=== PATIENT | male | born 1945 | race Caucasian/White ===

== ENCOUNTER 2016-11-07 21:52 | Emergency (ER) | payer OTHER ==
--- NOTE | 2016-11-07 22:32 | ED ORDER SUMMARY ---
..... Patient: GRACY PARNELL OrderSheet [facility] VisitID: [id number] [address] [place] [address] 71y, M Registration Date/Time: 11/07/2016 ORDER SHEET Weight: 79.8 kg (stated) Allergies: None GENERAL ORDERS: POC Glucose (22:19 11/07/2016 Isabell JuanABernadette-C) (22:25 Srikanth ER Financial Aid Manager) MEDICATION ORDERS: Tylenol w Codeine PO 10 mL (HIGH ALERT MEDICATION, NOW) (22:28 11/07/2016 Isabell Choudhury.A.-C) (23:01 Zaid Weinberg) IV FLUIDS: ORDER SHEET NOTES: [Electronically signed by Deangelo Batres R.N. (23:06 11/07/2016)] [Electronically signed by Isa Osborne P.A.-C (23:18 11/07/2016)] [Electronically locked/signed by Deangelo Batres R.N. (23:06 11/07/2016)]
--- NOTE | 2016-11-07 22:32 | ED ORDER SUMMARY ---
..... Patient: GRACY PARNELL OrderSheet [facility] VisitID: [id number] [address] [place] [address] 71y, M Registration Date/Time: 11/07/2016 ORDER SHEET Weight: 79.8 kg (stated) Allergies: None GENERAL ORDERS: POC Glucose (22:19 11/07/2016 Isabell JuanABernadette-C) (22:25 Srikanth ER Perfect Binder Setter) MEDICATION ORDERS: Tylenol w Codeine PO 10 mL (HIGH ALERT MEDICATION, NOW) (22:28 11/07/2016 Isabell Choudhury.A.-C) (23:01 Zaid Weinberg) IV FLUIDS: ORDER SHEET NOTES: [Electronically signed by Deangelo Batres R.N. (23:06 11/07/2016)] [Electronically signed by Isa Osborne P.A.-C (23:18 11/07/2016)] [Electronically locked/signed by Deangelo Batres R.N. (23:06 11/07/2016)]
--- NOTE | 2016-11-07 22:32 | ED CLINICAL REPORT ---
Clinical Report - Physicians/Mid Levels [facility] [address] [place] [address] 11/07/2016 21:53 Patient: GRACY PARNELL Time Seen: 22:41 Nov 07 2016. Arrived- By private vehicle. Historian- patient and family. HISTORY OF PRESENT ILLNESS Chief Complaint: SORE THROAT. 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 Pain described as mild. The patient has had a sore throat. (patient with a sore throat over the last 3 days, with rhinorrhea, congestion and right otalgia. Seen in the clinic today, started on antibiotics, despite negative rapid strep, started on azithromycin, no relief and thus are here. No new symptoms. No cough. No sudden changes to shortness of breath or new otalgia that has developed. No recent trauma. No hemoptysis. No weakness. No abdominal pain, nausea or vomiting. No chest pain. Is able to swallow, however with pain. No sick contacts.). REVIEW OF SYSTEMS No fever, difficulty breathing, chest pain, nausea or diarrhea. No abdominal pain or headache. All systems otherwise negative, except as recorded above. PAST HISTORY Problems: Hypertension. Pharyngitis. Hypercholesterolemia. Diabetes Mellitus. Immunizations. Additional Surgeries: Prostatectomy. Medications: Lantus Subcutaneous. Glipizide Oral. Simvastatin Oral. Aspirin Low Dose Oral. Allergies: None. SOCIAL HISTORY No drug use. ADDITIONAL NOTES The nursing notes have been reviewed. PHYSICAL EXAM Vital Signs: 11/07/2016 22:03 BP: 145/77. HR: 85. RR: 18. O2 saturation: 96%. Temp: 99.5 F. Appearance: Alert. No acute distress. ENT: Ears normal. Nose normal. Pharyngeal erythema. Pharynx normal. No trismus present. Uvula midline. No tonsillar exudate, peritonsillar mass, muffled or hoarse voice, drooling or nasal discharge. No purulent nasal discharge. (scarring of right tm, with no erythema, no signs of canal swelling or perforation). Neck: Lymphadenopathy present. CVS: Normal heart rate and rhythm. Respiratory: No respiratory distress. Breath sounds normal. No stridor or decreased air movement. Skin: Normal skin color. Extremities: Extremities nontender. PROGRESS AND PROCEDURES Course of Care: Family here translating on patient behalf, he is comfortable with such. Positive lymphadenopathy, low-grade fever, negative rapid strep recently, started on azithromycin. Patient is diabetic which appears to be in good control, at this time etiology is viral or bacterial, given his age group viral is highly suspicious, will give pain relief with Tylenol and codeine, which patient appreciated in the ER, and to follow up outpatient otherwise, salt water gargles recommended as well. No tachycardia, uvula is midline and no shift. No large masses of the neck are noted, in no acute further work up is essential. Glucose: 183. 11/07/2016 23:05 BP: 137/80. HR: 88. RR: 16. O2 saturation: 97%. Temp: 99 F. Patient is stable. Patient/family counseled. Differential Diagnosis: I considered viral pharyngitis, bacterial pharyngitis, palatine tonsillitis, lingual tonsillitis, thrush, allergic stomatitis, erythema multiforme, mononucleosis, peritonsillar cellulitis, parapharyngeal abscess, sinusitis, otitis media, foreign body, cardiac etiology, uvular edema and laryngeal edema as a possible cause of sore throat in this patient. This is a partial list of diagnoses considered. Disposition: Discharged. Condition: good. CLINICAL IMPRESSION Acute pharyngitis Chronic, well controlled type 2 diabetes. INSTRUCTIONS Rest. Drink plenty of fluids. (take your medications as prescribed). Warnings: SEDATIVE MEDICATION: You were given sedative medication during your visit. Do not drive or operate dangerous machinery. Prescription Medications: Tylenol with Codeine Liquid, 12 mg / 120 mg / 5 mL: take 1-2 teaspoons every 6 hours as needed for pain. Dispense ninety (90) mL. No refill. Substitution is permissible. OTC Medications: Take OTC medications according to label instructions. Available over the counter. Acetaminophen (available over the counter): take according to label instructions. Follow-up: Follow up with your doctor in three days. Understanding of the discharge instructions verbalized by patient. (Electronically signed by Isa Osborne P.A.-C 11/07/2016 23:18)
--- NOTE | 2016-11-07 22:32 | ED NURSING NOTES ---
Clinical Report - Nurses [facility] [address] [place] [address] 11/07/2016 21:53 Patient: GRACY PARNELL TRIAGE Triage time 2200. Acuity: LEVEL 3. Chief Complaint: SORE THROAT. --22:10 Deangelo Batres R.N. 22:03 11/07/16. BP: 145/77. HR: 85. RR: 18. O2 saturation: 96%. Temp: 99.5 F. Pain level now 03/24. --22:10 Deangelo Batres R.N. Weight: 79.8 kg stated. Height/Length: 63 inches Per Patient. BMI: 31.2. --22:09 Deangelo Batres R.N. Medications Aspirin Low Dose Oral. --22:06 Deangelo Batres R.N. Simvastatin Oral. --22:06 Deangelo Batres R.N. Glipizide Oral. --22:06 Deangelo Batres R.N. Lantus Subcutaneous. --22:06 Deangelo Batres R.N. Allergies None. --22:06 Deangelo Batres R.N. History Arrived by private vehicle. Historian: patient and family. Accompanied by family. Onset. (3 days). He has had moderate right ear pain. 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 FALL RISK ASSESSMENT: Fall risk assessment completed. No fall risk identified. NUTRITIONAL RISK ASSESSMENT: The nutritional risk assessment revealed no deficiencies. FUNCTIONAL ASSESSMENT: Functional assessment: no impairments noted. LEARNING NEEDS ASSESSMENT: The learning needs assessment revealed no barriers. SKIN INTEGRITY ASSESSMENT: Skin integrity risk assessment completed. No skin integrity risk identified. --22:10 Deangelo Batres R.N. PROBLEMS: Hypertension. Pharyngitis. Hypercholesterolemia. Diabetes Mellitus. Immunizations. --22:07 Deangelo Batres R.N. ADDITIONAL SURGERIES: Prostatectomy. --22:07 Gisel, Deangelo, R.N. Interventions ID band on patient. --22:10 Deangelo Batres R.N. PHYSICAL ASSESSMENT Ambulatory to room. GENERAL / NEURO / PSYCH: Alert. Oriented X 4. Appears in no acute distress. HEENT: Pupils equal, round and reactive to light. Voice within normal limits. Mucous membranes are pink. RESPIRATORY: Respirations not labored. CVS: Capillary refill less than 2 seconds. SKIN: Skin is warm and dry. Normal skin turgor. --22:10 Deangelo Batres R.N. NURSING PROGRESS NOTES Patient gowned. Head of bed elevated. Reassurance given. Patient identifiers checked. Call light placed in reach. Bed placed in lowest position. Brakes of bed on. --22:10 Deangelo Batres R.N. Point of care testing: performed by [facility]. Glucose: 183. Result shown to the ED physician. --22:25 Fish Vergara, ER Uniform Room Attendant 22:51 11/07/2016 TYLENOL W CODEINE (Acetaminophen-Codeine) PO 10 mL given. Allergies verified and confirmed 5 rights. --23:01 Deangelo Batres R.N. DISPOSITION / DISCHARGE Departure time: 2304. Condition at departure: improved. No learning barriers present. Discharge instructions provided and reviewed with the patient, spouse and family. Reviewed warnings. Reviewed medication(s). Treatments reviewed. Patient, spouse and family verbalized understanding. Written instructions provided in Nepali. The patient was discharged by the physician salon assistant. He was discharged home and accompanied by spouse and family. He left the Emergency Department ambulatory and via private vehicle. Family member driving. FALL RISK ASSESSMENT: Fall risk assessment completed. No fall risk identified. --23:06 Deangelo Batres R.N. 23:05 11/07/16. BP: 137/80. HR: 88. RR: 16. O2 saturation: 97%. Temp: 99 F. Pain level now 12/22. --23:06 Deangelo Batres R.N. Locked/Released at 11/07/2016 23:06 by Deangelo Batres R.N.
--- NOTE | 2016-11-07 22:32 | ED NURSING NOTES ---
Clinical Report - Nurses [facility] [address] [place] [address] 11/07/2016 21:53 Patient: GRACY PARNELL TRIAGE Triage time 2200. Acuity: LEVEL 3. Chief Complaint: SORE THROAT. --22:10 Deangelo Batres R.N. 22:03 11/07/16. BP: 145/77. HR: 85. RR: 18. O2 saturation: 96%. Temp: 99.5 F. Pain level now 03/24. --22:10 Deangelo Batres R.N. Weight: 79.8 kg stated. Height/Length: 63 inches Per Patient. BMI: 31.2. --22:09 Deangelo Batres R.N. Medications Aspirin Low Dose Oral. --22:06 Deangelo Batres R.N. Simvastatin Oral. --22:06 Deangelo Batres R.N. Glipizide Oral. --22:06 Deangelo Batres R.N. Lantus Subcutaneous. --22:06 Deangelo Batres R.N. Allergies None. --22:06 Deangelo Batres R.N. History Arrived by private vehicle. Historian: patient and family. Accompanied by family. Onset. (3 days). He has had moderate right ear pain. 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 FALL RISK ASSESSMENT: Fall risk assessment completed. No fall risk identified. NUTRITIONAL RISK ASSESSMENT: The nutritional risk assessment revealed no deficiencies. FUNCTIONAL ASSESSMENT: Functional assessment: no impairments noted. LEARNING NEEDS ASSESSMENT: The learning needs assessment revealed no barriers. SKIN INTEGRITY ASSESSMENT: Skin integrity risk assessment completed. No skin integrity risk identified. --22:10 Deangelo Batres R.N. PROBLEMS: Hypertension. Pharyngitis. Hypercholesterolemia. Diabetes Mellitus. Immunizations. --22:07 Deangelo Batres R.N. ADDITIONAL SURGERIES: Prostatectomy. --22:07 Gisel, Deangelo, R.N. Interventions ID band on patient. --22:10 Deangelo Batres R.N. PHYSICAL ASSESSMENT Ambulatory to room. GENERAL / NEURO / PSYCH: Alert. Oriented X 4. Appears in no acute distress. HEENT: Pupils equal, round and reactive to light. Voice within normal limits. Mucous membranes are pink. RESPIRATORY: Respirations not labored. CVS: Capillary refill less than 2 seconds. SKIN: Skin is warm and dry. Normal skin turgor. --22:10 Deangelo Batres R.N. NURSING PROGRESS NOTES Patient gowned. Head of bed elevated. Reassurance given. Patient identifiers checked. Call light placed in reach. Bed placed in lowest position. Brakes of bed on. --22:10 Deangelo Batres R.N. Point of care testing: performed by [employer]. Glucose: 183. Result shown to the ED physician. --22:25 Fish Vergara, ER Sales Strategy Manager 22:51 11/07/2016 TYLENOL W CODEINE (Acetaminophen-Codeine) PO 10 mL given. Allergies verified and confirmed 5 rights. --23:01 Deangelo Batres R.N. DISPOSITION / DISCHARGE Departure time: 2304. Condition at departure: improved. No learning barriers present. Discharge instructions provided and reviewed with the patient, spouse and family. Reviewed warnings. Reviewed medication(s). Treatments reviewed. Patient, spouse and family verbalized understanding. Written instructions provided in Kazakh. The patient was discharged by the physician dental hygiene administrative assistant. He was discharged home and accompanied by spouse and family. He left the Emergency Department ambulatory and via private vehicle. Family member driving. FALL RISK ASSESSMENT: Fall risk assessment completed. No fall risk identified. --23:06 Deangelo Batres R.N. 23:05 11/07/16. BP: 137/80. HR: 88. RR: 16. O2 saturation: 97%. Temp: 99 F. Pain level now 12/22. --23:06 Deangelo Batres R.N. Locked/Released at 11/07/2016 23:06 by Deangelo Batres R.N.
--- NOTE | 2016-11-07 22:32 | ED CLINICAL REPORT ---
Clinical Report - Physicians/Mid Levels [facility] [address] [place] [address] 11/07/2016 21:53 Patient: GRACY PARNELL Time Seen: 22:41 Nov 07 2016. Arrived- By private vehicle. Historian- patient and family. HISTORY OF PRESENT ILLNESS Chief Complaint: SORE THROAT. 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 Pain described as mild. The patient has had a sore throat. (patient with a sore throat over the last 3 days, with rhinorrhea, congestion and right otalgia. Seen in the clinic today, started on antibiotics, despite negative rapid strep, started on azithromycin, no relief and thus are here. No new symptoms. No cough. No sudden changes to shortness of breath or new otalgia that has developed. No recent trauma. No hemoptysis. No weakness. No abdominal pain, nausea or vomiting. No chest pain. Is able to swallow, however with pain. No sick contacts.). REVIEW OF SYSTEMS No fever, difficulty breathing, chest pain, nausea or diarrhea. No abdominal pain or headache. All systems otherwise negative, except as recorded above. PAST HISTORY Problems: Hypertension. Pharyngitis. Hypercholesterolemia. Diabetes Mellitus. Immunizations. Additional Surgeries: Prostatectomy. Medications: Lantus Subcutaneous. Glipizide Oral. Simvastatin Oral. Aspirin Low Dose Oral. Allergies: None. SOCIAL HISTORY No drug use. ADDITIONAL NOTES The nursing notes have been reviewed. PHYSICAL EXAM Vital Signs: 11/07/2016 22:03 BP: 145/77. HR: 85. RR: 18. O2 saturation: 96%. Temp: 99.5 F. Appearance: Alert. No acute distress. ENT: Ears normal. Nose normal. Pharyngeal erythema. Pharynx normal. No trismus present. Uvula midline. No tonsillar exudate, peritonsillar mass, muffled or hoarse voice, drooling or nasal discharge. No purulent nasal discharge. (scarring of right tm, with no erythema, no signs of canal swelling or perforation). Neck: Lymphadenopathy present. CVS: Normal heart rate and rhythm. Respiratory: No respiratory distress. Breath sounds normal. No stridor or decreased air movement. Skin: Normal skin color. Extremities: Extremities nontender. PROGRESS AND PROCEDURES Course of Care: Family here translating on patient behalf, he is comfortable with such. Positive lymphadenopathy, low-grade fever, negative rapid strep recently, started on azithromycin. Patient is diabetic which appears to be in good control, at this time etiology is viral or bacterial, given his age group viral is highly suspicious, will give pain relief with Tylenol and codeine, which patient appreciated in the ER, and to follow up outpatient otherwise, salt water gargles recommended as well. No tachycardia, uvula is midline and no shift. No large masses of the neck are noted, in no acute further work up is essential. Glucose: 183. 11/07/2016 23:05 BP: 137/80. HR: 88. RR: 16. O2 saturation: 97%. Temp: 99 F. Patient is stable. Patient/family counseled. Differential Diagnosis: I considered viral pharyngitis, bacterial pharyngitis, palatine tonsillitis, lingual tonsillitis, thrush, allergic stomatitis, erythema multiforme, mononucleosis, peritonsillar cellulitis, parapharyngeal abscess, sinusitis, otitis media, foreign body, cardiac etiology, uvular edema and laryngeal edema as a possible cause of sore throat in this patient. This is a partial list of diagnoses considered. Disposition: Discharged. Condition: good. CLINICAL IMPRESSION Acute pharyngitis Chronic, well controlled type 2 diabetes. INSTRUCTIONS Rest. Drink plenty of fluids. (take your medications as prescribed). Warnings: SEDATIVE MEDICATION: You were given sedative medication during your visit. Do not drive or operate dangerous machinery. Prescription Medications: Tylenol with Codeine Liquid, 12 mg / 120 mg / 5 mL: take 1-2 teaspoons every 6 hours as needed for pain. Dispense ninety (90) mL. No refill. Substitution is permissible. OTC Medications: Take OTC medications according to label instructions. Available over the counter. Acetaminophen (available over the counter): take according to label instructions. Follow-up: Follow up with your doctor in three days. Understanding of the discharge instructions verbalized by patient. (Electronically signed by Isa Osborne P.A.-C 11/07/2016 23:18)
--- NOTE | 2016-11-07 23:18 | ED DISCHARGE INSTRUCTIONS ---
Patient: GRACY PARNELL General Instructions [facility] VisitID: [id number] [place] [address] 71y, M Registration Date/Time: 11/07/2016 Acute pharyngitis Chronic, well controlled type 2 diabetes. INSTRUCTIONS Rest. Drink plenty of fluids. (take your medications as prescribed). Warnings: SEDATIVE MEDICATION: You were given sedative medication during your visit. Do not drive or operate dangerous machinery. Prescription Medications: Tylenol with Codeine Liquid, 12 mg / 120 mg / 5 mL: take 1-2 teaspoons every 6 hours as needed for pain. Dispense ninety (90) mL. No refill. Substitution is permissible. OTC Medications: Take OTC medications according to label instructions. Available over the counter. Acetaminophen (available over the counter): take according to label instructions. Follow-up: Follow up with your doctor in three days. Understanding of the discharge instructions verbalized by patient. ADDITIONAL INFORMATION Viral Pharyngitis (Sore Throat) Your throat pain is due to an infection called "Viral Pharyngitis", commonly known as "Sore Throat". This is a contagious illness. It is spread through the air by coughing, kissing or by touching others after touching your mouth or nose. Symptoms include throat pain worse with swallowing, aching all over, headache and fever. Unlike strep throat, which is a bacterial infection, this illness does not require treatment with an antibiotic. Home Care: If your symptoms are severe, rest at home for the first 2-3 days. Children: Use acetaminophen (Tylenol) for fever, fussiness or discomfort. In infants over six months of age, you may use ibuprofen (Children's Motrin) instead of Tylenol. [NOTE: If your child has chronic liver or kidney disease or ever had a stomach ulcer or GI bleeding, talk with your maria victoria doctor before using these medicines.] (Aspirin should never be used in anyone under 18 years of age who is ill with a fever. It may cause severe liver damage.) Adults: You may use acetaminophen (Tylenol) or ibuprofen (Motrin, Advil) to control pain or fever, unless another medicine was prescribed. [NOTE: If you have chronic liver or kidney disease or ever had a stomach ulcer or GI bleeding, talk with your doctor before using these medicines.] Throat lozenges or sprays (Chloraseptic and others) will reduce pain. Gargling with warm salt water will also reduce throat pain. Dissolve 1/2 teaspoon of salt in 1 glass of warm water. This is especially useful just before meals. Follow Up with your doctor or as directed by our staff if you are not improving over the next week. Get Prompt Medical Attention if any of the following occur: Fever over 100.5F (38.0C) oral, or over 101.5F (38.6C) rectal for more than three days New or worsening ear pain, sinus pain or headache Painful lumps in the back of your neck Unable to swallow liquids or open your mouth wide due to throat pain Trouble breathing or noisy breathing Muffled voice New rash Acetaminophen, Codeine Phosphate Oral solution What is this medicine? ACETAMINOPHEN; CODEINE (a set a ROSEMARY stewart fen; KOE marlene) is a pain reliever. It is used to treat mild to moderate pain. How should I use this medicine? Take this medicine by mouth. Use a specially marked spoon or dropper to measure your dose. Ask your pharmacist if you do not have a dropper or measuring spoon. Do not use a household spoon. Follow the directions on the prescription label. If the medicine upsets your stomach, take the medicine with food or milk. Do not take more than you are told to take. Talk to your carpenter's assistant regarding the use of this medicine in children. Special care may be needed. What side effects may I notice from receiving this medicine? Side effects that you should report to your doctor or health neonatal intensive care unit nurse as soon as possible: allergic reactions like skin rash, itching or hives, swelling of the face, lips, or tongue breathing problems confusion feeling faint or lightheaded, falls stomach pain unusual bleeding or bruising unusually weak or tired yellowing of the eyes, skin Side effects that usually do not require medical attention (report to your doctor or health neonatal intensive care unit nurse if they continue or are bothersome): nausea, vomiting What may interact with this medicine? alcohol antihistamines carbamazepine isoniazid medicines for depression, anxiety, or psychotic disturbances medicines for sleep muscle relaxants naltrexone narcotic medicines (opiates) for pain phenobarbital, phenytoin, and fosphenytoin tramadol What if I miss a dose? If you miss a dose, take it as soon as you can. If it is almost time for your next dose, take only that dose. Do not take double or extra doses. Where should I keep my medicine? Keep out of the reach of children. This medicine can be abused. Keep your medicine in a safe place to protect it from theft. Do not share this medicine with anyone. Selling or giving away this medicine is dangerous and against the law. Store at room temperature between 15 and 30 degrees C (59 and 86 degrees F). Protect from light. Keep container tightly closed. Throw away any unused medicine after the expiration date. Discard unused medicine and used packaging carefully. Pets and children can be harmed if they find used or lost packages. What should I tell my health care provider before I take this medicine? They need to know if you have any of these conditions: brain tumor Crohn's disease, inflammatory bowel disease, or ulcerative colitis drink more than 3 alcohol-containing drinks per day drug abuse or addiction head injury heart or circulation problems kidney disease or problems going to the bathroom liver disease lung disease, asthma, or breathing problems an unusual or allergic reaction to acetaminophen, codeine, parabens, other medicines, foods, dyes, or preservatives or trying to get breast-feeding What should I watch for while using this medicine? Tell your doctor or health neonatal intensive care unit nurse if your pain does not go away, if it gets worse, or if you have new or a different type of pain. You may develop tolerance to the medicine. Tolerance means that you will need a higher dose of the medicine for pain relief. Tolerance is normal and is expected if you take the medicine for a long time. Do not suddenly stop taking your medicine because you may develop a severe reaction. Your body becomes used to the medicine. This does NOT mean you are addicted. Addiction is a behavior related to getting and using a drug for a non-medical reason. If you have pain, you have a medical reason to take pain medicine. Your doctor will tell you how much medicine to take. If your doctor wants you to stop the medicine, the dose will be slowly lowered over time to avoid any side effects. You may get drowsy or dizzy when you first start taking the medicine or change doses. Do not drive, use machinery, or do anything that may be dangerous until you know how the medicine affects you. Stand or sit up slowly. There are different types of narcotic medicines (opiates) for pain. If you take more than one type at the same time, you may have more side effects. Give your health care provider a list of all medicines you use. Your doctor will tell you how much medicine to take. Do not take more medicine than directed. Call emergency for help if you have problems breathing. The medicine will cause constipation. Try to have a bowel movement at least every 2 to 3 days. If you do not have a bowel movement for 3 days, call your doctor or health neonatal intensive care unit nurse. Too much acetaminophen can be very dangerous. Do not take Tylenol (acetaminophen) or medicines that contain acetaminophen with this medicine. Many non-prescription medicines contain acetaminophen. Always read the labels carefully. Immediately call your physician or get emergency help if you are breast-feeding and your baby is sleepier than usual, is limp, or has difficulty or breathing. You have been given the following additional information: Pharyngitis, Viral Acetaminophen, Codeine Phosphate Oral solution Rest. (Electronically signed by Isa Osborne P.A.-C 11/07/2016 23:18)
--- NOTE | 2016-11-07 23:18 | ED DISCHARGE INSTRUCTIONS ---
Patient: GRACY PARNELL General Instructions [facility] VisitID: [id number] [place] [address] 71y, M Registration Date/Time: 11/07/2016 Acute pharyngitis Chronic, well controlled type 2 diabetes. INSTRUCTIONS Rest. Drink plenty of fluids. (take your medications as prescribed). Warnings: SEDATIVE MEDICATION: You were given sedative medication during your visit. Do not drive or operate dangerous machinery. Prescription Medications: Tylenol with Codeine Liquid, 12 mg / 120 mg / 5 mL: take 1-2 teaspoons every 6 hours as needed for pain. Dispense ninety (90) mL. No refill. Substitution is permissible. OTC Medications: Take OTC medications according to label instructions. Available over the counter. Acetaminophen (available over the counter): take according to label instructions. Follow-up: Follow up with your doctor in three days. Understanding of the discharge instructions verbalized by patient. ADDITIONAL INFORMATION Viral Pharyngitis (Sore Throat) Your throat pain is due to an infection called "Viral Pharyngitis", commonly known as "Sore Throat". This is a contagious illness. It is spread through the air by coughing, kissing or by touching others after touching your mouth or nose. Symptoms include throat pain worse with swallowing, aching all over, headache and fever. Unlike strep throat, which is a bacterial infection, this illness does not require treatment with an antibiotic. Home Care: If your symptoms are severe, rest at home for the first 2-3 days. Children: Use acetaminophen (Tylenol) for fever, fussiness or discomfort. In infants over six months of age, you may use ibuprofen (Children's Motrin) instead of Tylenol. [NOTE: If your child has chronic liver or kidney disease or ever had a stomach ulcer or GI bleeding, talk with your maria victoria doctor before using these medicines.] (Aspirin should never be used in anyone under 18 years of age who is ill with a fever. It may cause severe liver damage.) Adults: You may use acetaminophen (Tylenol) or ibuprofen (Motrin, Advil) to control pain or fever, unless another medicine was prescribed. [NOTE: If you have chronic liver or kidney disease or ever had a stomach ulcer or GI bleeding, talk with your doctor before using these medicines.] Throat lozenges or sprays (Chloraseptic and others) will reduce pain. Gargling with warm salt water will also reduce throat pain. Dissolve 1/2 teaspoon of salt in 1 glass of warm water. This is especially useful just before meals. Follow Up with your doctor or as directed by our staff if you are not improving over the next week. Get Prompt Medical Attention if any of the following occur: Fever over 100.5F (38.0C) oral, or over 101.5F (38.6C) rectal for more than three days New or worsening ear pain, sinus pain or headache Painful lumps in the back of your neck Unable to swallow liquids or open your mouth wide due to throat pain Trouble breathing or noisy breathing Muffled voice New rash Acetaminophen, Codeine Phosphate Oral solution What is this medicine? ACETAMINOPHEN; CODEINE (a set a ROSEMARY stewart fen; KOE marlene) is a pain reliever. It is used to treat mild to moderate pain. How should I use this medicine? Take this medicine by mouth. Use a specially marked spoon or dropper to measure your dose. Ask your pharmacist if you do not have a dropper or measuring spoon. Do not use a household spoon. Follow the directions on the prescription label. If the medicine upsets your stomach, take the medicine with food or milk. Do not take more than you are told to take. Talk to your heading saw operator regarding the use of this medicine in children. Special care may be needed. What side effects may I notice from receiving this medicine? Side effects that you should report to your doctor or health career technical supervisor as soon as possible: allergic reactions like skin rash, itching or hives, swelling of the face, lips, or tongue breathing problems confusion feeling faint or lightheaded, falls stomach pain unusual bleeding or bruising unusually weak or tired yellowing of the eyes, skin Side effects that usually do not require medical attention (report to your doctor or health career technical supervisor if they continue or are bothersome): nausea, vomiting What may interact with this medicine? alcohol antihistamines carbamazepine isoniazid medicines for depression, anxiety, or psychotic disturbances medicines for sleep muscle relaxants naltrexone narcotic medicines (opiates) for pain phenobarbital, phenytoin, and fosphenytoin tramadol What if I miss a dose? If you miss a dose, take it as soon as you can. If it is almost time for your next dose, take only that dose. Do not take double or extra doses. Where should I keep my medicine? Keep out of the reach of children. This medicine can be abused. Keep your medicine in a safe place to protect it from theft. Do not share this medicine with anyone. Selling or giving away this medicine is dangerous and against the law. Store at room temperature between 15 and 30 degrees C (59 and 86 degrees F). Protect from light. Keep container tightly closed. Throw away any unused medicine after the expiration date. Discard unused medicine and used packaging carefully. Pets and children can be harmed if they find used or lost packages. What should I tell my health care provider before I take this medicine? They need to know if you have any of these conditions: brain tumor Crohn's disease, inflammatory bowel disease, or ulcerative colitis drink more than 3 alcohol-containing drinks per day drug abuse or addiction head injury heart or circulation problems kidney disease or problems going to the bathroom liver disease lung disease, asthma, or breathing problems an unusual or allergic reaction to acetaminophen, codeine, parabens, other medicines, foods, dyes, or preservatives or trying to get breast-feeding What should I watch for while using this medicine? Tell your doctor or health career technical supervisor if your pain does not go away, if it gets worse, or if you have new or a different type of pain. You may develop tolerance to the medicine. Tolerance means that you will need a higher dose of the medicine for pain relief. Tolerance is normal and is expected if you take the medicine for a long time. Do not suddenly stop taking your medicine because you may develop a severe reaction. Your body becomes used to the medicine. This does NOT mean you are addicted. Addiction is a behavior related to getting and using a drug for a non-medical reason. If you have pain, you have a medical reason to take pain medicine. Your doctor will tell you how much medicine to take. If your doctor wants you to stop the medicine, the dose will be slowly lowered over time to avoid any side effects. You may get drowsy or dizzy when you first start taking the medicine or change doses. Do not drive, use machinery, or do anything that may be dangerous until you know how the medicine affects you. Stand or sit up slowly. There are different types of narcotic medicines (opiates) for pain. If you take more than one type at the same time, you may have more side effects. Give your health care provider a list of all medicines you use. Your doctor will tell you how much medicine to take. Do not take more medicine than directed. Call emergency for help if you have problems breathing. The medicine will cause constipation. Try to have a bowel movement at least every 2 to 3 days. If you do not have a bowel movement for 3 days, call your doctor or health career technical supervisor. Too much acetaminophen can be very dangerous. Do not take Tylenol (acetaminophen) or medicines that contain acetaminophen with this medicine. Many non-prescription medicines contain acetaminophen. Always read the labels carefully. Immediately call your physician or get emergency help if you are breast-feeding and your baby is sleepier than usual, is limp, or has difficulty or breathing. You have been given the following additional information: Pharyngitis, Viral Acetaminophen, Codeine Phosphate Oral solution Rest. (Electronically signed by Isa Osborne P.A.-C 11/07/2016 23:18)
--- NOTE | 2016-11-07 23:18 | ED MAR SUMMARY ---
..... Medication Administration Record [facility] [address] [place] [address] Patient: GRACY PARNELL Visit ID: [id number] 71y, M Weight: 79.8 kg Height/Length: 63 in BMI: 31.2 ALLERGIES: None Given 22:51 11/07/2016 Deangelo Batres R.N. Medication Administered: TYLENOL W CODEINE [PO] (ACETAMINOPHEN-CODEINE), Dose: 10 mL PO. Medication Ordered: Tylenol w Codeine PO 10 mL (HIGH ALERT MEDICATION, NOW).
--- NOTE | 2016-11-07 23:18 | ED MED RECONCILIATION SUMMARY ---
Patient: GRACY PARNELL Medication Reconciliation Report [facility] VisitID: [id number] [address] [place] [address] 71y, M Registration Date/Time: 11/07/2016 Weight: 79.8 kg Height/Length: 63 in. BMI: 31.2 ALLERGIES: None The patient's Home Medications are listed below: THE FOLLOWING MEDICATIONS NEED TO BE RECONCILED: Aspirin Low Dose Oral Glipizide Oral Lantus Subcutaneous Simvastatin Oral The source(s) of the original Home Medication information: Not obtained. The following Medications were given to the patient in the Emergency Department: TYLENOL W CODEINE [PO] PO 10 mL, administered: 11/07/2016 10:51:00 PM The following Medications were prescribed to the patient: Take OTC medications according to label instructions. Available over the counter. -- Isa Osborne P.A.-C Acetaminophen (available over the counter): take according to label instructions. -- Isa Osborne P.A.-Nic Tylenol with Codeine Liquid, 12 mg / 120 mg / 5 mL: take 1-2 teaspoons every 6 hours as needed for pain. Dispense ninety (90) mL. No refill. Substitution is permissible. -- Isa Osborne P.A.-C
--- NOTE | 2016-11-07 23:18 | ED MAR SUMMARY ---
..... Medication Administration Record [facility] [address] [address] Patient: GRACY PARNELL Visit ID: [id number] 71y, M Weight: 79.8 kg Height/Length: 63 in BMI: 31.2 ALLERGIES: None Given 22:51 11/07/2016 Deangelo Batres R.N. Medication Administered: TYLENOL W CODEINE [PO] (ACETAMINOPHEN-CODEINE), Dose: 10 mL PO. Medication Ordered: Tylenol w Codeine PO 10 mL (HIGH ALERT MEDICATION, NOW).
--- NOTE | 2016-11-07 23:18 | ED MED RECONCILIATION SUMMARY ---
Patient: GRACY PARNELL Medication Reconciliation Report [facility] VisitID: [id number] [address] [place] [address] 71y, M Registration Date/Time: 11/07/2016 Weight: 79.8 kg Height/Length: 63 in. BMI: 31.2 ALLERGIES: None The patient's Home Medications are listed below: THE FOLLOWING MEDICATIONS NEED TO BE RECONCILED: Aspirin Low Dose Oral Glipizide Oral Lantus Subcutaneous Simvastatin Oral The source(s) of the original Home Medication information: Not obtained. The following Medications were given to the patient in the Emergency Department: TYLENOL W CODEINE [PO] PO 10 mL, administered: 11/07/2016 10:51:00 PM The following Medications were prescribed to the patient: Take OTC medications according to label instructions. Available over the counter. -- Isa Osborne P.A.-C Acetaminophen (available over the counter): take according to label instructions. -- Isa Osborne P.A.-Nic Tylenol with Codeine Liquid, 12 mg / 120 mg / 5 mL: take 1-2 teaspoons every 6 hours as needed for pain. Dispense ninety (90) mL. No refill. Substitution is permissible. -- Isa Osborne P.A.-C
== END 2016-11-07 23:04 | disposition home or self-care (01) ==
LOC: ED SRH 21:52
DX: J02.9 Acute pharyngitis, unspecified (principal); R59.1 Generalized enlarged lymph nodes; E11.9 Type 2 diabetes mellitus without complications; I10 Essential (primary) hypertension; Z79.4 Long term (current) use of insulin; Z79.82 Long term (current) use of aspirin
CPT/HCPCS: 90098